=== PATIENT | male | born 1940 | race Caucasian/White ===

== ENCOUNTER 2018-07-19 07:10 | Day surgery (SDC) | payer MEDICARE, BC ==
[~2018-07-19 07:10] MED LIST: Lidocaine 1% PF 2 ML SDV INJECT SCH
[2018-07-19] MEDS: Polymyxin B/Trimethoprim 10 ML Bottle EYELF SCH ×4 (07:28→10:01)
[2018-07-19] MEDS: Brimonidine 0.2% Ophth Soln 5 ML Bottle EYELF SCH ×4 (07:35→10:01)
--- NOTE | 2018-07-19 07:37 | PCM.PREANE ---
Preanesthetic Assessment - Anesthesia/Transfusion/Family Hx Anesthesia History: Prior Anesthesia Without Reaction Family History of Anesthesia Reaction: No Transfusion History: Prior Transfusion Without Reaction - Review of Systems General: No Symptoms Pulmonary: No Symptoms Cardiovascular: No Symptoms Gastrointestinal: No Symptoms Neurological: No Symptoms - Physical Assessment NPO Status Date: 07/18/18 NPO Status Time: 19:00 Pulse: 62 O2 Sat by Pulse Oximetry: 96 Respiratory Rate: 16 Blood Pressure: 176/82 Temperature: 97.1 C ASA Class: 2 Mental Status: Alert & Oriented x3 Airway Class: Mallampati = 3 Dentition: Reports: Normal Dentition Thyro-Mental Finger Breadths: 3 Mouth Opening Finger Breadths: 3 ROM/Head Extension: Full Lungs: Clear to Auscultation, Normal Respiratory Effort Cardiovascular: Regular Rate, Regular Rhythm - Allergies Allergies/Adverse Reactions: Allergies Allergy/AdvReac Type Severity Reaction Status Date / Time No Known Allergies Allergy Verified 07/18/18 13:22 - Anesthesia Plan Beta Viraj: Metoprolol Med Last Dose Date: 07/19/18 Med Last Dose Time: 06:00 - Acknowledgements Anesthesia Type Planned: MAC Pt an Appropriate Candidate for the Planned Anesthesia: Yes Alternatives and Risks of Anesthesia Discussed w Pt/Guardian: Yes Pt/Guardian Understands and Agrees with Anesthesia Plan: Yes PreAnesthesia Questionnaire HEENT History: Reports: Cataract Cardiovascular History: Reports: High Cholesterol, Hypertension, [place] (1991, CABG) Respiratory History: Reports: None Gastrointestinal History: Reports: None Genitourinary History: Reports: None Musculoskeletal History: Reports: None Endocrine/Metabolic History: Reports: None - Past Surgical History HEENT Surgical History: Reports: Cataract Surgery Cardiovascular Surgical History: Reports: Coronary Artery Bypass - SUBSTANCE USE Smoking Status *Q: Former Smoker - HOME MEDS Home Medications: Home Meds Aspirin 81 mg PO DAILY 06/11/18 [History] Cephalexin [Keflex] 500 mg PO ASDIRECTED 06/11/18 [History] Cinnamon Bark [Cinnamon] 500 mg PO DAILY 06/11/18 [History] Cyanocobalamin/Folic AC/Vit B6 [Folbee] 1 tab PO DAILY 06/11/18 [History] Glucosamine/D3/Boswellia Shelley [Osteo Bi-Flex Caplet] 1 tab PO DAILY 06/11/18 [ History] Metoprolol Succinate [Kapspargo Sprinkle] 50 mg PO DAILY 06/11/18 [History] Multivitamin [Poly-Vitamin] 1 tab PO DAILY 06/11/18 [History] Nitroglycerin [Nitrostat] 0.4 mg SL ASDIRECTED PRN 06/11/18 [History] Ramipril 10 mg PO DAILY 06/11/18 [History] Ubidecarenone [Coq-10] 100 mg PO DAILY 06/11/18 [History] amLODIPine Besylate [Norvasc] 5 mg PO DAILY 06/11/18 [History] atorvaSTATin [Lipitor] 40 mg PO DAILY 06/11/18 [History] - CURRENT (IN HOUSE) MEDS Current Meds: Current Medications Brimonidine Tartrate (Alphagan 0.2% Ophth Soln) 0 ml EYELF ASDIRECTED GIANNA Stop: 07/19/18 18:00 Cefuroxime Sodium (Zinacef) 0 mg EYELF ASDIRECTED GIANNA Stop: 07/19/18 18:00 Lidocaine HCl (Xylocaine-Mpf 1%) 0 ml INJECT ASDIRECTED GIANNA Stop: 07/19/18 18:00 Phenylephrine HCl (Dariel-Synephrine 2.5% Ophth Soln) 0 ml EYELF ASDIRECTED GIANNA Stop: 07/19/18 18:00 Pilocarpine HCl (Pilocar 4% Ophth Soln) 0 ml EYELF ASDIRECTED GIANNA Stop: 07/19/18 18:00 Polymyxin/Trimethoprim Sulfate (Polytrim Ophth Soln) 0 ml EYELF ASDIRECTED GIANNA Stop: 07/19/18 18:00 Last Admin: 07/19/18 07:28 Dose: 1 drop Tetracaine HCl (Tetracaine 0.5% Steri-Unit Arlin) 0 ml EYELF ASDIRECTED GIANNA Stop: 07/19/18 18:00 Tropicamide (Mydriacyl 1% Ophth Soln) 0 ml EYELF ASDIRECTED GIANNA Stop: 07/19/18 18:00
[2018-07-19] MEDS: Phenylephrine 2.5% Ophth Soln 2 ML Bot EYELF SCH ×5 (07:39→09:28)
[2018-07-19] MEDS: Tropicamide 1% Ophth Soln 15 ML Bottle EYELF SCH ×4 (07:44→08:45)
[2018-07-19] MEDS: Tetracaine HCl/PF 0.5% 4 ML Bottle EYELF SCH ×2 (09:09→09:39)
[2018-07-19] MEDS: Pilocarpine 4% Ophth Soln 15 ML Bot EYELF SCH ×2 (09:56→10:01)
[2018-07-19] MEDS: Cefuroxime 10 MG/ML SYRINGE EYELF SCH ×2 (09:56→10:00)
--- NOTE | 2018-07-19 10:01 | PCM48HPAN ---
Post Anesthesia Note - EVALUATION WITHIN 48HRS OF ANESTHETIC Vital Signs in Normal Range: Yes Patient Participated in Evaluation: Yes Respiratory Function Stable: Yes Airway Patent: Yes Cardiovascular Function Stable: Yes Hydration Status Stable: Yes Pain Control Satisfactory: Yes Nausea and Vomiting Control Satisfactory: Yes Mental Status Recovered: Yes
== END 2018-07-19 10:16 | disposition home or self-care (01) ==
LOC: JD.SDS 07:10
PROVIDERS: ATTEND Ophthalmology
DX: H25.812 Combined forms of age-related cataract, left eye (principal); I10 Essential (primary) hypertension; I25.2 Old myocardial infarction; E78.00 Pure hypercholesterolemia, unspecified; Z98.41 Cataract extraction status, right eye; Z96.1 Presence of intraocular lens; Z95.1 Presence of aortocoronary bypass graft; Z87.891 Personal history of nicotine dependence; Z83.518 Family history of other specified eye disorder; Z79.82 Long term (current) use of aspirin; Z79.899 Other long term (current) drug therapy
CPT/HCPCS: 66984; A9270; C1780; J0697; J2001

== ENCOUNTER 2023-08-21 13:29 | Emergency (ER) | payer MEDICARE, OTHER ==
[2023-08-21 14:08] LABS: BASOPHILS PERCENT AUTO 0.2 % (0.0-1.0); EOSINOPHILS ABSOLUTE AUTO 0.1 K/mm3 (0.0-0.4); EOSINOPHILS PERCENT AUTO 1.4 % (0.0-6.0); HEMOGLOBIN 15.2 gm/dl (14.0-18.0); IMMATURE GRAN ABSOLUTE AUTO 0.03 K/mm3 (0.00-0.05); IMMATURE GRAN PERCENT AUTO 0.3 % (0.0-0.4); LYMPHOCYTES ABSOLUTE AUTO 1.7 K/mm3 (1.0-4.8); LYMPHOCYTES PERCENT AUTO 17.5 % (24.0-44.0); MEAN CORPUSCULAR HEMOGLOBIN 29.9 pg (28.0-32.0); MEAN CORPUSCULAR VOLUME 90.6 fl (83.0-99.0); MEAN PLATELET VOLUME 9.1 fl (9.4-12.4); MONOCYTES ABSOLUTE AUTO 0.6 K/mm3 (0.0-0.8); MONOCYTES PERCENT AUTO 6.1 % (0.0-8.0); NEUTROPHILS ABSOLUTE AUTO 7.1 K/mm3 (1.8-7.7); NEUTROPHILS PERCENT AUTO 74.5 % (41.0-71.0); PLATELET COUNT,PLT 247 K/mm3 (150-400); RED BLOOD CELL COUNT 5.08 M/mm3 (4.52-5.90); WHITE BLOOD CELL COUNT,WBC 9.58 K/mm3 (3.9-11.3)
[2023-08-21 14:31] LABS: INR 1.04; PROTHROMBIN TIME 11.1 SECONDS (9.7-12.0)
[2023-08-21 14:32] LABS: PTT,PARTIAL THROMBOPLSTIN TIME 27.3 SECONDS (21.7-31.4)
[2023-08-21 14:35] LABS: A/G RATIO 0.8 (1-2); ALBUMIN 3.5 g/dl (3.4-5.0); ANION GAP 16.7 (5-15); BILIRUBIN TOTAL 0.7 mg/dL (0.2-1.0); BUN/CREATININE RATIO 23.3 (14-18); CALCIUM 9.2 mg/dL (8.5-10.1); CREATININE 0.9 mg/dL (0.7-1.3); EST CRCL DRUG DOSING (CG) 74.84 mL/min; POTASSIUM,K 3.7 mEq/L (3.5-5.1); PROTEIN TOTAL,TP 7.8 g/dl (6.4-8.2)
[2023-08-21] MEDS: Meclizine 25 MG Tab PO ONE (15:37)
[2023-08-21] MEDS: LORazepam 2 MG/ML SDV IVPUSH ONE (15:38)
[2023-08-21 15:40] LABS: CORONAVIRUS COVID-19 NAA NEGATIVE (NEGATIVE); INFLUENZA A NAA NEGATIVE (NEGATIVE); RESPIRATORY SYNCYTIAL VIR NAA NEGATIVE (NEGATIVE)
[2023-08-21 16:35] LABS: APPEARANCE,URINE CLEAR (Clear); BILIRUBIN,URINE NEGATIVE (Negative); COLOR,URINE YELLOW (Yellow); GLUCOSE,URINE NEGATIVE (Negative); KETONES,URINE NEGATIVE (Negative); LEUKOCYTE ESTERASE,URINE NEGATIVE (Negative); NITRITE,URINE NEGATIVE (Negative); OCCULT BLOOD,URINE NEGATIVE (Negative); PH,URINE 6.5 (5.0-8.0); PROTEIN,URINE NEGATIVE (Negative); UROBILINOGEN,URINE 0.2 (0.2-1.0)
[2023-08-21 16:37] LABS: BARBITURATE SCREEN,URINE NEGATIVE (CUTOFF=200); BENZODIAZEPINES SCREEN,URINE NEGATIVE (CUTOFF=150); BUPRENORPHINE SCREEN,URINE NEGATIVE (CUTOFF=10); METHADONE SCREEN, URINE NEGATIVE (CUT0FF=200); METHAMPHETAMINES SCREEN, URINE NEGATIVE (CUTOFF=500); OXYCODONE SCREEN,URINE NEGATIVE (CUT0FF=100); THC SCREEN,URINE 20 NG/ML NEGATIVE (CUTOFF=50)
[2023-08-21 16:40] LABS: AMPHETAMINES SCREEN, URINE NEGATIVE (CUTOFF=500)
[2023-08-21] MEDS: Sodium Chloride 0.9% 10 ML Syringe FLUSH ONE (17:10)
[2023-08-21] MEDS: Iopamidol 755 Mg/ML 100 ML Bottle IVPUSH ONE (17:10)
[2023-08-21] MEDS ORDERED: Sodium Chloride 0.9% 100 ML IV SCH (17:15)
== END 2023-08-21 18:50 | disposition home or self-care (01) ==
LOC: JD.ED 13:29
DX: H81.13 Benign paroxysmal vertigo, bilateral (principal); J32.9 Chronic sinusitis, unspecified; I10 Essential (primary) hypertension; I25.2 Old myocardial infarction; E78.00 Pure hypercholesterolemia, unspecified; Z95.1 Presence of aortocoronary bypass graft; Z79.82 Long term (current) use of aspirin; Z79.899 Other long term (current) drug therapy
CPT/HCPCS: 0241U; 36415; 70450; 70496; 70498; 80053; 80306; 80307; 81003; 83735; 84484; 85025; 85610; 85730; 93005; 99284; A9270; J3490; Q9967